=== PATIENT | male | born 1935 | race Caucasian/White ===

== ENCOUNTER 2016-09-15 08:19 | Day surgery (SDC) | payer MEDICARE, OTHER ==
[~2016-09-15 08:19] MED LIST: DIPHENHYDRAMINE HCL 50 MG/ML VIAL ONE; EPINEPHRINE INJ 1 MG/10 ML DISP.SYRIN ONE; FENTANYL CITRATE INJ/PF 100 MCG/2 ML AMPUL ONE; FLUMAZENIL INJ 0.5 MG/5 ML VIAL IV ONE; GLUCAGON,HUMAN RECOMB 1 MG INJ ONE; NALOXONE HCL INJ/PF 0.4 MG/1 ML SDV ONE; ONDANSETRON HCL INJ/PF 4 MG/2 ML SDV ONE; PROMETHAZINE HCL INJ 25 MG/1 ML VIAL ONE
[2016-09-15] MEDS: MIDAZOLAM 2 MG/2 ML INJ ONE ×2 (09:17→09:30)
[2016-09-15] MEDS ORDERED: SIMETHICONE 80 MG TAB.CHEW ONE (10:28)
--- NOTE | 2016-09-15 10:43 | Operative Report ---
Operative Report DATE OF SURGERY: 09/15/16 Operative Report: The risks, benefits and alternatives of the procedure including risks of bleeding, perforation requiring surgery are explained to the patient in detail and informed consent is obtained. Patient was taken back to the endoscopy suite and placed in a left lateral decubital position. Timeout is called. A rectal examination was done which did not reveal any masses, tears or fissures. An Olympus video scope was inserted into the patient's rectum. Keeping the lumen in sight at all times the scope was then gradually advanced all the way to cecum. The cecum was identified by the usual anatomical landmarks of the ileocecal valve as well as the appendiceal office. Photodocumentation was obtained. Prep is good. The scope was then sequentially pulled back via the various segments of the colon including the ascending colon, hepatic flexure, transverse colon, splenic flexure, descending colon and finally into the rectosigmoid colon. Retroflexion maneuvers performed. Following this the patient's stretcher was turned around and the EGD performed. The risks benefits and alternatives of the procedure explained to the patient in detail and informed consent is obtained that GIF Olympus video scope was inserted into the patient's mouth and hypopharynx the esophagus is identified intubated and insufflated the scope was then advanced through the esophagus stomach and duodenum retroflexion maneuver is done the esophagus stomach and first and second portions of the duodenum examined PREOPERATIVE DIAGNOSIS: Iron deficiency anemia rule out GI bleed. Weight loss. Personal history of polyps POSTOPERATIVE DIAGNOSIS: Mild colitis, nonspecific. Gastritis. Diverticulosis. Internal hemorrhoids OPERATION: Colonoscopy, biopsy. EGD with biopsy SURGEON: DION COATS ANESTHESIA: Moderate Sedation - 3 mg of Versed, 25 g of fentanyl. TISSUE REMOVED OR ALTERED: Gastric specimens obtained COMPLICATIONS: None. ESTIMATED BLOOD LOSS: none. INTRAOPERATIVE FINDINGS: No active GI bleeding seen. Occasional diverticulosis noted. Internal hemorrhoids. Gastritis. Previous history of peptic ulcer disease PROCEDURE: Patient tolerated the procedure well. No immediate postprocedure complications are noted. Patient is discharged in good condition. Discharge date 09/15/2016. Discharge diet: Regular. Discharge activity: Regular. Patient does have a 2-3 follow-up to discuss findings. Patient is instructed to go to emergency room all call the office should there be any further problems or questions. We'll await on biopsies
[2016-09-15 11:56] VITALS: BP 156/92
== END 2016-09-15 11:40 | disposition home or self-care (01) ==
LOC: END 08:19
PROVIDERS: ATTEND Internal Medicine Gastroenterology
PROC: 0DB68ZX Excision of Stomach, Via Natural or Artificial Opening Endoscopic, Diagnostic (ICD-10-PCS; principal; 2016-09-15 09:00)
PROC: 0DJD8ZZ Inspection of Lower Intestinal Tract, Via Natural or Artificial Opening Endoscopic (ICD-10-PCS; 2016-09-15 09:00)
DX: K52.9 Noninfective gastroenteritis and colitis, unspecified (principal); K57.30 Diverticulosis of large intestine without perforation or abscess without bleeding; K64.8 Other hemorrhoids; D50.9 Iron deficiency anemia, unspecified; Z86.010 Personal history of colon polyps; I10 Essential (primary) hypertension; E78.5 Hyperlipidemia, unspecified; Z79.82 Long term (current) use of aspirin; Z79.899 Other long term (current) drug therapy
CPT/HCPCS: 43239; 45378; 88305 ×2; J2250; J3010; A9270; J0171; J1200; J1610; J2310; J2405; J2550; J3490

== ENCOUNTER 2017-07-22 08:05 | Day surgery (SDC) | payer MEDICARE, OTHER ==
[~2017-07-22 08:05] MED LIST changes: -FLUMAZENIL INJ 0.5 MG/5 ML VIAL IV ONE; +FLUMAZENIL INJ 0.5 MG/5 ML VIAL ONE; +MIDAZOLAM 2 MG/2 ML INJ ONE; -PROMETHAZINE HCL INJ 25 MG/1 ML VIAL ONE
--- NOTE | 2017-07-22 09:00 | Operative Report ---
Operative Report DATE OF SURGERY: 07/22/17 Operative Report: The risks benefits and alternatives of the procedure explained to the patient in detail and informed consent is obtained.A GIF Olympus video scope was inserted into the patient's mouth and hypopharynx, the esophagus is identified intubated and insufflated, the scope was then advanced through the esophagus stomach and duodenum, retroflexion maneuver is done, the esophagus stomach and first and second portions of the duodenum examined PREOPERATIVE DIAGNOSIS: Follow-up on previous history of esophagitis, patient does have some dysphagia. POSTOPERATIVE DIAGNOSIS: Persistent distal esophageal inflammation, biopsy obtained. Gastritis biopsy obtained OPERATION: EGD with biopsy SURGEON: DION COATS ANESTHESIA: Moderate Sedation - 2 mg of Versed. Conscious sedation monitoring time 30 minutes. TISSUE REMOVED OR ALTERED: Distal esophageal specimen obtained. Gastric mucosal specimen obtained COMPLICATIONS: None. ESTIMATED BLOOD LOSS: None. INTRAOPERATIVE FINDINGS: As noted above. PROCEDURE: Patient tolerated procedure well. No immediate postprocedure complications are noted. Patient discharged in good condition. Discharge date 07/22/2017. Discharge diet: Regular. Discharge activity: Regular. 2-3 week follow-up to discuss findings. Patient is instructed to call the office or proceed to the emergency room should there be any further problems or questions. We will await pathology. Close follow-up needed to monitor his esophagitis.
[2017-07-22 10:19] VITALS: BP 142/71
== END 2017-07-22 10:20 | disposition home or self-care (01) ==
LOC: END 08:05
PROVIDERS: ATTEND Internal Medicine Gastroenterology
PROC: 0DB58ZX Excision of Esophagus, Via Natural or Artificial Opening Endoscopic, Diagnostic (ICD-10-PCS; 2017-07-22)
PROC: 0DB68ZX Excision of Stomach, Via Natural or Artificial Opening Endoscopic, Diagnostic (ICD-10-PCS; principal; 2017-07-22 09:00)
DX: K29.50 Unspecified chronic gastritis without bleeding (principal); K20.9 Esophagitis, unspecified; I10 Essential (primary) hypertension; E78.5 Hyperlipidemia, unspecified; D50.9 Iron deficiency anemia, unspecified; Z79.82 Long term (current) use of aspirin; Z79.899 Other long term (current) drug therapy
CPT/HCPCS: 43239; 88305 ×2; J2250; J3010; J0171; J1200; J1610; J2310; J2405; J3490

== ENCOUNTER 2017-09-28 07:06 | Day surgery (SDC) | payer MEDICARE, OTHER ==
[2017-09-28] MEDS ORDERED: DIPHENHYDRAMINE HCL 50 MG/ML VIAL ONE (07:33)
[2017-09-28] MEDS ORDERED: NALOXONE HCL INJ/PF 0.4 MG/1 ML SDV ONE (07:33)
[2017-09-28] MEDS ORDERED: ONDANSETRON HCL INJ/PF 4 MG/2 ML SDV ONE (07:33)
[2017-09-28] MEDS ORDERED: FENTANYL CITRATE INJ/PF 100 MCG/2 ML AMPUL ONE (07:34)
[2017-09-28] MEDS ORDERED: EPINEPHRINE INJ 1 MG/10 ML DISP.SYRIN ONE (07:34)
[2017-09-28] MEDS ORDERED: FLUMAZENIL INJ 0.5 MG/5 ML VIAL ONE (07:34)
[2017-09-28] MEDS ORDERED: MIDAZOLAM 2 MG/2 ML INJ ONE (07:34)
[2017-09-28] MEDS ORDERED: GLUCAGON,HUMAN RECOMB 1 MG INJ ONE (07:35)
[2017-09-28] MEDS: MIDAZOLAM 2 MG/2 ML INJ ONE ×3 (07:56→08:05)
--- NOTE | 2017-09-28 08:14 | Operative Report ---
Operative Report DATE OF SURGERY: 09/28/17 Operative Report: The risks benefits and alternatives of the procedure explained to the patient in detail and informed consent is obtained.A GIF Olympus video scope was inserted into the patient's mouth and hypopharynx, the esophagus is identified intubated and insufflated, the scope was then advanced through the esophagus stomach and duodenum, retroflexion maneuver is done, the esophagus stomach and first and second portions of the duodenum examined PREOPERATIVE DIAGNOSIS: Esophagitis versus Aguirre's POSTOPERATIVE DIAGNOSIS: Majority of the distal esophagitis has healed, 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 Hiatal hernia OPERATION: EGD with ablation SURGEON: DION COATS ANESTHESIA: Moderate Sedation - 4 mg of Versed. Conscious sedation monitoring time 30 minutes. TISSUE REMOVED OR ALTERED: None. COMPLICATIONS: None. ESTIMATED BLOOD LOSS: None. INTRAOPERATIVE FINDINGS: As noted above. PROCEDURE: Patient tolerated procedure well. No immediate postprocedure complications are noted. Patient discharged in good condition. Discharge date 09/28/2017. Discharge diet: Regular. Discharge activity: Regular. 2-3 week follow-up to discuss findings. Patient is instructed to call the office or proceed to the emergency room should there be any further problems or questions.
[2017-09-28 09:58] VITALS: BP 120/66
== END 2017-09-28 09:40 | disposition home or self-care (01) ==
LOC: END 07:06
PROVIDERS: ATTEND Internal Medicine Gastroenterology
PROC: 0D558ZZ Destruction of Esophagus, Via Natural or Artificial Opening Endoscopic (ICD-10-PCS; principal; 2017-09-28 08:00)
DX: K20.9 Esophagitis, unspecified (principal); K22.70 Barrett's esophagus without dysplasia; K44.9 Diaphragmatic hernia without obstruction or gangrene; I10 Essential (primary) hypertension
CPT/HCPCS: 43270; J2250; J0171; J1200; J1610; J2310; J2405; J3010; J3490

== ENCOUNTER 2019-04-11 00:32 | Observation (INO) | payer MEDICARE, OTHER ==
--- NOTE | 2019-04-11 00:52 | ER Document Report ---
ED General - General Stated Complaint: SHORTNESS OF BREATH Time Seen by Provider: 04/11/19 00:44 Notes: Patient is a 83-year-old male that comes to the emergency department by EMS for chief complaint of pain in his chest from "the throat all the way down to the stomach with a burning feeling". He states he started feeling discomfort at 2230 tonight, started feeling short of breath at 2300 approximately. He has had a cough for about 3 weeks now, he was started on doxycycline for this. He denies fever/chills, nausea/vomiting, he states he has no difficulty eating. Past medical history includes ID x3 with his last [place] [address] 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 No reported history of A. fib for but he states he is on Eliquis. TRAVEL OUTSIDE OF THE [place] IN LAST 30 DAYS: No - Related Data Allergies/Adverse Reactions: No Known Allergies Allergy (Verified 04/11/19 00:55) Past Medical History - General Information source: Patient - Social History Smoking Status: Never Smoker Frequency of alcohol use: None Drug Abuse: None Lives with: Family Family History: Reviewed & Not Pertinent - Past Medical History Cardiac Medical History: Reports: Hx Heart Attack - X 3 1996, Hx Hypertension Denies: Hx Coronary Artery Disease Pulmonary Medical History: Denies: Hx Asthma, Hx Bronchitis, Hx COPD, Hx Pneumonia Neurological Medical History: Denies: Hx Cerebrovascular Accident, Hx Seizures GI Medical History: Denies: Hx Hepatitis, Hx Hiatal Hernia, Hx Ulcer Musculoskeletal Medical History: Reports Hx Arthritis Infectious Medical History: Denies: Hx Hepatitis Past Surgical History: Reports: Hx Open Heart Surgery - STENT X 1. Denies: Hx Pacemaker - Immunizations Hx Diphtheria, Pertussis, Tetanus Vaccination: Yes Hx Pneumococcal Vaccination: 05/22/17 Review of Systems - Review of Systems Constitutional: No symptoms reported EENT: No symptoms reported Cardiovascular: See HPI Respiratory: See HPI Gastrointestinal: See HPI Genitourinary: No symptoms reported Male Genitourinary: No symptoms reported Musculoskeletal: No symptoms reported Skin: No symptoms reported Hematologic/Lymphatic: No symptoms reported Neurological/Psychological: No symptoms reported Physical Exam - Vital signs Vitals: Temp Pulse Resp BP Pulse Ox 98.1 F 89 18 144/88 H 97 04/11/19 00:32 04/11/19 00:32 04/11/19 00:32 04/11/19 00:32 04/11/19 00:32 - Notes Notes: GENERAL: Alert, interacts well. No acute distress. HEAD: Normocephalic, atraumatic. EYES: Pupils equal, round, and reactive to light. Extraocular movements intact. ENT: Oral mucosa moist, tongue midline. Oropharynx unremarkable. Airway patent. Nares patent, no nasal septal hematoma NECK: Full range of motion. Supple. Trachea midline. LUNGS: Patient does have episodes of congested cough. HEART: Regular rate and rhythm except for extrasystoles. No murmur. ABDOMEN: Soft, non-tender. Non-distended. Bowel sounds present in all 4 quadrants. GENITOURINARY: Deferred EXTREMITIES: Moves all 4 extremities spontaneously. There is 1+ pitting edema bilaterally. There is old deformity of the right ankle, discoloration of the skin over the feet with a bluish color but patient states this is chronic. Pulses and sensation intact. BACK: no cervical, thoracic, lumbar midline tenderness. No saddle anesthesia, normal distal neurovascular exam. NEUROLOGICAL: Alert and oriented x3. Normal speech. Cranial nerves II through XII grossly intact. PSYCH: Normal affect, normal mood. SKIN: Warm, dry, normal turgor. No rashes or lesions noted. Course - Re-evaluation Re-evalutation: Records do show patient has had a history of A. fib. He is well-appearing on my exam, he does have frequent PVCs, initial EKG is difficult to interpret and will be repeated. There was a lot of artifact. Repeat EKG is better but still appears to show rate controlled atrial fibrillation with scattered PVCs. Does not appear to be flutter. CBC shows mild normocytic anemia, otherwise unremarkable. Chemistry nonspecific. Troponin is 0.128, BNP is 1900. Patient does have bilateral lower extremity edema which is mild, lungs sound clear, chest x-ray appears normal. Unfortunately have no comparison troponins and BNP's. 04/11/19 01:45 Patient is not complaining of chest pain at this time, he states she just has a burning sensation in his throat when he coughs. He is asking for something for this. Patient was reevaluated after receiving a lidocaine nebulizer, he states his symptoms are gone at this time, he feels much better. Second troponin is slightly downtrending at 0.126. Patient discussed with Dr. Morgan. 04/11/19 03:[address] Luna, hospitalist, he recommends that I speak to patient's tool engineer Dr. Pacheco first and then call him back if needed. I spoke with Dr. Pacheco, discussed patient's HPI and work-up. He recommends that patient be admitted to telemetry observation for chest pain rule out based on his symptoms, age, and laboratory work-up so far. I discussed this with patient and step daughter at bedside, they state understanding and agreement with this plan. - Vital Signs Vital signs: Temp Pulse Resp BP Pulse Ox 98.1 F 89 21 H 153/88 H 97 04/11/19 00:32 04/11/19 00:32 04/11/19 05:03 04/11/19 05:03 04/11/19 05:03 - Laboratory Result Diagrams: 04/11/19 00:53 04/11/19 00:53 Laboratory results interpreted by me: 04/11/19 04/11/19 04/11/19 00:53 00:53 00:53 Hgb 11.7 L Hct 36.1 L MCH 26.5 L RDW 16.4 H Chloride 109 H BUN 26 H NT-Pro-B Natriuret Pep 1900 H Lipase 333.6 H - EKG Interpretation by Me Additional EKG results interpreted by me: EKG shows atrial flutter at a rate of 100, also appears to have PVCs present, no noted T wave inversions or ST segment changes in consecutive leads. No recent comparison EKG present. Discharge - Discharge Clinical Impression: Elevated brain natriuretic peptide (BNP) level, Elevated troponin, Cough Chest pain Qualifiers: Chest pain type: unspecified Qualified Code(s): R07.9 - Chest pain, unspecified Condition: Stable Disposition: ADMITTED OBSERVATION Admitting Provider: Cheryl (Hospitalist) Unit Admitted: Telemetry
[2019-04-11 01:02] LABS: ABSOLUTE BASOPHILS # (AUTO) 0.1 10^3/uL (0.0-0.2); ABSOLUTE EOSINOPHILS # (AUTO) 0.2 10^3/uL (0.0-0.6); ABSOLUTE LYMPHOCYTES (AUTO) 1.4 10^3/uL (0.5-4.7); ABSOLUTE MONOCYTES (AUTO) 0.7 10^3/uL (0.1-1.4); ABSOLUTE NEUT (AUTO) 4.8 10^3/uL (1.7-8.2); BASOPHILS % (AUTO) 0.8 % (0-2); EOSINOPHILS % (AUTO) 3.4 % (0-6); HEMATOCRIT 36.1 % (37.9-51.0); HEMOGLOBIN 11.7 g/dL (13.5-17.0); LYMPHOCYTES % (AUTO) 19.9 % (13-45); MEAN CORPUSCULAR HEMOGLOBIN 26.5 pg (27.0-33.4); MEAN CORPUSCULAR HGB CONC 32.4 g/dL (32.0-36.0); MEAN CORPUSCULAR VOLUME 82 fl (80-97); PLATELET COUNT 239 10^3/uL (150-450); RED BLOOD COUNT 4.42 10^6/uL (4.35-5.55); RED CELL DISTRIBUTION WIDTH 16.4 % (11.5-14.0); SEGMENTED NEUTROPHILS % (AUTO) 65.9 % (42-78); TOTAL CELLS COUNTED % (AUTO) 100 %; WHITE BLOOD COUNT 7.2 10^3/uL (4.0-10.5)
[2019-04-11 01:09] LABS: INTERNATIONAL RATION (INR) 1.09; PROTHROMBIN TIME 14.1 SEC (11.4-15.4)
[2019-04-11 01:24] LABS: ALBUMIN 3.6 g/dL (3.5-5.0); ALKALINE PHOSPHATASE 89 U/L (38-126); ANION GAP 6 (5-19); ASPARTATE AMINO TRANSFERASE 36 U/L (17-59); BILIRUBIN,DIRECT 0.3 mg/dL (0.0-0.4); BILIRUBIN,TOTAL 0.4 mg/dL (0.2-1.3); BLOOD UREA NITROGEN 26 mg/dL (7-20); CALCIUM 9.7 mg/dL (8.4-10.2); CARBON DIOXIDE 28 mmol/L (22-30); CHLORIDE 109 mmol/L (98-107); GLUCOSE 84 mg/dL (75-110); POTASSIUM 4.3 mmol/L (3.6-5.0); TOTAL PROTEIN 6.4 g/dL (6.3-8.2)
--- NOTE | 2019-04-11 01:26 | RADIOLOGY REPORT (SQ) ---
EXAM DESCRIPTION: [facility]: XR CHEST 1 VIEW CLINICAL HISTORY: 83 years Male, cp COMPARISON: None. FINDINGS: Lungs are clear, with no focal infiltrate, pneumothorax, or pleural effusion. Mediastinum is within normal limits for this positioning. Bony structures are unremarkable. IMPRESSION: 1. No acute pulmonary findings.
[2019-04-11 01:37] LABS: TROPONIN I 0.128 ng/mL
[2019-04-11] MEDS ORDERED: LIDOCAINE 1% INJ-PF (10 MG/ML) 30 ML SDV NEB ONE (01:38)
[2019-04-11] MEDS ORDERED: FAMOTIDINE 20 MG TABLET PO ONE (01:44)
[2019-04-11] MEDS ORDERED: ASPIRIN 81 MG TABLET, CHEWABLE PO ONE (01:44)
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
[2019-04-11] MEDS ORDERED: ONDANSETRON HCL INJ/PF 4 MG/2 ML SDV IV PRN (06:52)
[2019-04-11] MEDS ORDERED: MAGNESIUM HYDROXIDE SUSP 30 ML UDCUP PO PRN (06:52)
[2019-04-11] MEDS ORDERED: MAG HYDROX/AL HYDROX/SIMETH SUSP 30 ML UDCUP PO PRN (06:52)
--- NOTE | 2019-04-11 09:25 | Progress Note ---
Provider Note Provider Note: 83 year old male who presented to the emergency room with an acute history of chest pain. Patient indicates that at approximately 10:30 PM on the night prior to admission he developed a burning sensation in his chest from his stomach all the way up to his throat which gradually increased over the next half an hour and was accompanied by moderate dyspnea. He further admits to a 3-week history of a nonproductive cough which she feels may be associated with his current symptoms. He denies other associated or accompanying signs and symptoms. He denies prior similar episodes. He has not identified any aggravating or ameliorating factors for his chest pain. In the emergency room patient was treated with a lidocaine nebulizer treatment which provided him with immediate relief of his discomfort. He was noted to have an elevated troponin. Patient was subsequently admitted to the hospital for further evaluation and treatment as a observation status patient per Dr. Pacheco's request. 04/11/2019-patient was seen briefly in the emergency room around 9 AM this morning. Denies any chest pain complaints of heartburn symptoms. Expressing desire to eat. Repeat cardiac enzymes are requested. Family is concerned about his lower leg swelling. His vital signs are stable blood pressure is 145/83 pulse rate is 74 respiratory feels 15 pulse ox is 96%. Lipase is 333 with elevated BNP of 1190. Latest troponin is 0.126. Cardiology on board. On examination alert awake oriented not in distress chest bilateral entry was decreased no wheezing no crepitations S1-S2 present abdomen soft flat bowel sounds are present. Extremities 1+ pedal edema present. to continue the present management at this time.
[2019-04-11] MEDS: FAMOTIDINE 20 MG TABLET PO SCH ×2 (09:27→22:28)
[2019-04-11] MEDS: DOCUSATE SODIUM 100 MG/10 ML UDC PO SCH ×2 (09:27→17:37)
[2019-04-11 10:23] LABS: CREATINE KINASE MB 1.95 ng/mL (<4.55); TROPONIN I 0.101 ng/mL
[2019-04-11] MEDS ORDERED: FUROSEMIDE INJ/PF 20 MG/2 ML SDV IV ONE (13:00)
[2019-04-11] MEDS ORDERED: NITROGLYCERIN 5 MG (0.2 MG/HR) PATCH.TD24 TD ONE (13:00)
[2019-04-11] MEDS: METOPROLOL SUCCINATE 25 MG TAB.SR.24H PO SCH ×2 (13:17→22:28)
[2019-04-11 15:43] LABS: CREATINE KINASE MB 1.67 ng/mL (<4.55); TROPONIN I 0.084 ng/mL
--- NOTE | 2019-04-11 17:33 | EKG REPORT ---
SEVERITY:- ABNORMAL ECG - SINUS RHYTHM MULTIPLE VENTRICULAR PREMATURE COMPLEXES BORDERLINE PROLONGED QT INTERVAL : Confirmed by: Alyssa Pacheco MD 11-Apr-2019 17:32:08
--- NOTE | 2019-04-11 17:33 | EKG REPORT ---
SEVERITY:- ABNORMAL ECG - ATRIAL FLUTTER,/ FIBRILLATION : Confirmed by: Alyssa Pacheco MD 11-Apr-2019 17:33:04
--- NOTE | 2019-04-11 17:33 | EKG REPORT ---
SEVERITY:- ABNORMAL ECG - SINUS OR ECTOPIC ATRIAL RHYTHM MULTIPLE VENTRICULAR PREMATURE COMPLEXES : Confirmed by: Alyssa Pacheco MD 11-Apr-2019 17:32:03
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
[2019-04-11] MEDS: TRAMADOL HCL 50 MG TABLET PO PRN (22:28)
[2019-04-11 22:47] LABS: CREATINE KINASE MB 1.27 ng/mL (<4.55); TROPONIN I 0.08 ng/mL
[2019-04-12 06:07] LABS: ABSOLUTE EOSINOPHILS # (AUTO) 0.4 10^3/uL (0.0-0.6); ABSOLUTE LYMPHOCYTES (AUTO) 1.2 10^3/uL (0.5-4.7); ABSOLUTE MONOCYTES (AUTO) 0.9 10^3/uL (0.1-1.4); ABSOLUTE NEUT (AUTO) 4.9 10^3/uL (1.7-8.2); BASOPHILS % (AUTO) 0.6 % (0-2); EOSINOPHILS % (AUTO) 5.2 % (0-6); HEMATOCRIT 35.3 % (37.9-51.0); HEMOGLOBIN 11.5 g/dL (13.5-17.0); LYMPHOCYTES % (AUTO) 16.8 % (13-45); MEAN CORPUSCULAR HEMOGLOBIN 26.7 pg (27.0-33.4); MEAN CORPUSCULAR HGB CONC 32.7 g/dL (32.0-36.0); MEAN CORPUSCULAR VOLUME 82 fl (80-97); MONOCYTES % (AUTO) 11.6 % (3-13); PLATELET COUNT 200 10^3/uL (150-450); RED BLOOD COUNT 4.32 10^6/uL (4.35-5.55); RED CELL DISTRIBUTION WIDTH 16.6 % (11.5-14.0); SEGMENTED NEUTROPHILS % (AUTO) 65.8 % (42-78); TOTAL CELLS COUNTED % (AUTO) 100 %; WHITE BLOOD COUNT 7.4 10^3/uL (4.0-10.5)
[2019-04-12 06:19] LABS: ALBUMIN 3.1 g/dL (3.5-5.0); ALKALINE PHOSPHATASE 79 U/L (38-126); ANION GAP 8 (5-19); ASPARTATE AMINO TRANSFERASE 30 U/L (17-59); BILIRUBIN,DIRECT 0.1 mg/dL (0.0-0.4); BILIRUBIN,TOTAL 0.3 mg/dL (0.2-1.3); BLOOD UREA NITROGEN 25 mg/dL (7-20); CALCIUM 9.3 mg/dL (8.4-10.2); CARBON DIOXIDE 26 mmol/L (22-30); CHLORIDE 108 mmol/L (98-107); GLUCOSE 76 mg/dL (75-110); POTASSIUM 3.9 mmol/L (3.6-5.0); TOTAL PROTEIN 5.6 g/dL (6.3-8.2)
[2019-04-12] MEDS: TRAMADOL HCL 50 MG TABLET PO PRN ×3 (08:46→23:00)
--- NOTE | 2019-04-12 09:01 | EKG REPORT ---
SEVERITY:- ABNORMAL ECG - ATRIAL FIBRILLATION, V-RATE 70-90 MULTIPLE VENTRICULAR PREMATURE COMPLEXES BORDERLINE PROLONGED QT INTERVAL : Confirmed by: Alyssa Pacheco MD 12-Apr-2019 09:01:05
--- NOTE | 2019-04-12 09:03 | EKG REPORT ---
SEVERITY:- OTHERWISE NORMAL ECG - VENTRICULAR PREMATURE COMPLEX ATRIAL FIBRILLATION : Confirmed by: Alyssa Pacheco MD 12-Apr-2019 09:01:51
--- NOTE | 2019-04-12 09:03 | EKG REPORT ---
SEVERITY:- OTHERWISE NORMAL ECG - SINUS OR ECTOPIC ATRIAL RHYTHM VENTRICULAR PREMATURE COMPLEX : Confirmed by: Alyssa Pacheco MD 12-Apr-2019 09:01:55
[2019-04-12] MEDS: FAMOTIDINE 20 MG TABLET PO SCH ×2 (09:30→22:00)
[2019-04-12] MEDS: METOPROLOL SUCCINATE 25 MG TAB.SR.24H PO SCH ×2 (09:30→22:00)
[2019-04-12] MEDS: DOCUSATE SODIUM 100 MG/10 ML UDC PO SCH ×2 (09:30→20:57)
[2019-04-12] MEDS: APIXABAN 2.5 MG TABLET PO SCH ×2 (11:44→22:00)
--- NOTE | 2019-04-12 14:08 | PDOC PROGRESS REPORT ---
Subjective Progress Note for:: 04/12/19 Subjective:: Patient is currently eating lunch. He appears comfortable. He has no complaints. Reason For Visit: CHEST PAIN Physical Exam Vital Signs: Temp Pulse Resp BP Pulse Ox 98.5 F 86 19 159/90 H 97 04/12/19 08:07 04/12/19 08:07 04/12/19 08:07 04/12/19 08:07 04/12/19 08:07 Intake & Output 04/11/19 04/12/19 04/13/19 06:59 06:59 06:59 Intake Total 1380 592 Output Total 2900 1000 Balance -1520 -408 Weight 88.4 kg 92.5 kg General appearance: PRESENT: no acute distress, cooperative, well-developed - Frail appearing 83-year-old male sitting in the chair Head exam: PRESENT: atraumatic, normocephalic Eye exam: PRESENT: conjunctiva pink, EOMI. ABSENT: scleral icterus Ear exam: PRESENT: normal external ear exam. ABSENT: bleeding, drainage Mouth exam: PRESENT: moist, tongue midline Respiratory exam: PRESENT: clear to auscultation jacquelin, symmetrical, unlabored. ABSENT: rales, rhonchi, tachypnea, wheezes Cardiovascular exam: PRESENT: irregular rhythm. ABSENT: diastolic murmur, systolic murmur GI/Abdominal exam: PRESENT: normal bowel sounds, soft. ABSENT: distended, tenderness Rectal exam: PRESENT: deferred Gentrourinary exam: ABSENT: indwelling catheter Extremities exam: ABSENT: joint swelling, pedal edema, tenderness Musculoskeletal exam: PRESENT: normal inspection. ABSENT: deformity Neurological exam: PRESENT: alert, awake, oriented to person, oriented to place, oriented to time, oriented to situation, CN II-XII grossly intact Psychiatric exam: PRESENT: appropriate affect, normal mood. ABSENT: agitated, anxious Focused psych exam: ABSENT: delusional, restlessness Results Laboratory Results: 04/12/19 05:36 04/12/19 05:36 04/12/19 04/12/19 05:36 05:36 WBC 7.4 RBC 4.32 L Hgb 11.5 L Hct 35.3 L MCV 82 MCH 26.7 L MCHC 32.7 RDW 16.6 H Plt Count 200 Seg Neutrophils % 65.8 Sodium 142.1 Potassium 3.9 Chloride 108 H Carbon Dioxide 26 Anion Gap 8 BUN 25 H Creatinine 1.02 Est GFR ( Amer) > 60 Glucose 76 Calcium 9.3 Magnesium 2.2 Total Bilirubin 0.3 AST 30 Alkaline Phosphatase 79 Total Protein 5.6 L Albumin 3.1 L 04/11/19 04/11/19 04/11/19 00:53 02:58 02:58 Creatine Kinase 65 CK-MB (CK-2) Troponin I 0.128 0.126 NT-Pro-B Natriuret Pep 1900 H 04/11/19 04/11/19 04/11/19 02:58 09:18 09:18 Creatine Kinase 51 L CK-MB (CK-2) 2.49 1.95 Troponin I Cancelled 0.101 NT-Pro-B Natriuret Pep 04/11/19 04/11/19 04/11/19 15:00 15:00 21:48 Creatine Kinase 53 L 49 L CK-MB (CK-2) 1.67 Troponin I 0.084 NT-Pro-B Natriuret Pep 04/11/19 21:48 Creatine Kinase CK-MB (CK-2) 1.27 Troponin I 0.080 NT-Pro-B Natriuret Pep Impressions: Chest X-Ray 04/11/19 00:45 IMPRESSION: 1. No acute pulmonary findings. Assessment and Plan - Diagnosis (1) Chest pain Qualifiers: Chest pain type: other chest pain Qualified Code(s): R07.89 - Other chest pain; R07.8 - Other chest pain Is this a current diagnosis for this admission?: Yes Plan: 04/12/2019-the chest pain is most likely noncardiac. It was relieved with a lidocaine nebulizer treatment. It is possible he GI related. The patient does take Celebrex as well. This could contribute to GI distress as well. Chest pain is currently resolved. (2) Elevated brain natriuretic peptide (BNP) level Is this a current diagnosis for this admission?: Yes Plan: 04/12/2019-most likely due to his history of heart disease. He is currently not in active heart failure. (3) Elevated troponin Is this a current diagnosis for this admission?: Yes Plan: 04/12/2019-troponins are marginally elevated. This is most likely due to the paroxysmal atrial fibrillation. Maximize therapy for coronary disease. The patient will have a stress test as an outpatient after discharge. (4) Cough Is this a current diagnosis for this admission?: Yes Plan: 04/12/2019-exact etiology of the cough is difficult to ascertain. He was coughing during today's encounter while eating his meals. He states that the cough is not directly associated with meals as he coughs at other times as well. Symptomatic treatment for the cough at this time. (5) Chronic anticoagulation Is this a current diagnosis for this admission?: Yes Plan: 04/12/2019-the patient was observed in atrial fibrillation on the monitor and by exam. He was placed on chronic anticoagulation by cardiology. At this point the benefit outweighs the risk as noted in the cardiology note. If the patient tolerates the medication he will be discharged tomorrow with an outpatient Cardiolite stress test. The patient is on aspirin and Celebrex and he certainly present risk. He will need monitoring by his primary care provider. (6) Paroxysmal atrial fibrillation Is this a current diagnosis for this admission?: Yes Plan: 04/12/2019-good rate control on metoprolol. - Time Time Spent with patient: 15-24 minutes Medications reviewed and adjusted accordingly: Yes Anticipated discharge: Home Within: within 24 hours - Plan Summary Plan Summary: Monitor overnight with the addition of anticoagulation. The plan is to discharge home in the morning.
[2019-04-13] MEDS: TRAMADOL HCL 50 MG TABLET PO PRN (08:20)
[2019-04-13] MEDS: DOCUSATE SODIUM 100 MG/10 ML UDC PO SCH (11:20)
[2019-04-13] MEDS: METOPROLOL SUCCINATE 25 MG TAB.SR.24H PO SCH (11:20)
[2019-04-13] MEDS: APIXABAN 2.5 MG TABLET PO SCH (11:21)
[2019-04-13] MEDS: FAMOTIDINE 20 MG TABLET PO SCH (11:21)
--- NOTE | 2019-04-13 11:53 | PDOC DISCHARGE SUMMARY ---
General - Admit/Disc Date/PCP Admission Date/Primary Care Provider: 04/11/19 03:59 Discharge Date: 04/13/19 - Discharge Diagnosis (1) Chest pain Is this a current diagnosis for this admission?: Yes Summary: This chest pain is most likely non-cardiac as it was relieved with nebulized lidocaine. The most likely etiology, based on all considerations, would be gastroesophageal. (2) Elevated brain natriuretic peptide (BNP) level Is this a current diagnosis for this admission?: Yes Summary: Possibly due to cardiac strain and the patient's advanced age. There is no echocardiogram to document systolic or diastolic dysfunction. (3) Elevated troponin Is this a current diagnosis for this admission?: Yes Summary: Most likely due to strain with underlying fibrillation. He will be seeing Dr. Pacheco and having an outpatient Cardiolite stress test as well. (4) Cough Is this a current diagnosis for this admission?: Yes Summary: I discussed this with his sister. During yesterday's visit it was noted that he was eating lunch and coughing. The patient and his sister report that he has had a cold and this is the etiology for the cough as they feel it is not specifically related to swallowing. (5) Chronic anticoagulation Is this a current diagnosis for this admission?: Yes Summary: The patient has a history of multiple emboli and with his atrial fibrillation the risk versus benefit for anticoagulation supports continued anticoagulation. (6) Paroxysmal atrial fibrillation Is this a current diagnosis for this admission?: Yes Summary: Good rate control on current regimen. He will continue anticoagulation as well. (7) Gait disorder Is this a current diagnosis for this admission?: Yes Summary: The patient is quite weak and deconditioned. Therapy suggests discharge with ongoing outpatient physical therapy and a walker for safety when ambulating. These orders were placed prior to discharge. - Additional Information Resuscitation Status: Do Not Resuscitate Discharge Diet: Cardiac Discharge Activity: Balance Activity w/Rest Prescriptions: Apixaban [Eliquis 2.5 mg Tablet] 2.5 mg PO Q12 #60 tablet Metoprolol Succinate [Toprol Xl 25 mg Tab.sr] 25 mg PO Q12 #60 tab.sr.24h Home Medications: Celecoxib [Celebrex 200 mg Capsule] 200 mg PO BID 04/11/19 Dorzolamide HCl/Pf [Dorzolamide 2% Eye Drop] 1 drop OU BID 04/11/19 Fenofibrate Nanocrystallized [Tricor 145 mg Tablet] 145 mg PO DAILY 04/11/19 Finasteride [Proscar 5 mg Tablet] 5 mg PO DAILY 04/11/19 Fosinopril Sodium [Monopril] 10 mg PO BID 04/11/19 Rosuvastatin Calcium [Crestor 20 mg Tablet] 20 mg PO QHS 04/11/19 Tramadol HCl [Ultram 50 mg Tablet] 50 mg PO Q6HP PRN 04/11/19 Apixaban [Eliquis 2.5 mg Tablet] 2.5 mg PO Q12 #60 tablet 04/13/19 Docusate Sodium [Colace Udc 100 mg/10 ml Oral Soln] 100 mg PO BID udc 04/13/19 Metoprolol Succinate [Toprol Xl 25 mg Tab.sr] 25 mg PO Q12 #60 tab.sr.24h 04/13/19 History of Present Illness Patient complains of: Chest pain History of Present Illness: JESSICA MONET is a 83 year old male with a complex medical history. It includes multiple pulmonary emboli and atrial fibrillation. Today he describes a burning sensation that extends from his stomach all the way up his throat. It did show a chronic progression that was associated with dyspnea. He has a nonproductive cough for several weeks. On examination it was noted that he had slightly elevated troponins and was in atrial fibrillation. He did have a nebulizer treatment with lidocaine and then in fact immediately relieved his symptoms. He was referred to the hospital service for admission. Hospital Course Hospital Course: As noted above the patient had a fairly unremarkable hospital course. His cough persisted. He will have a stress test as an outpatient. Physical Exam Vital Signs: Temp Pulse Resp BP Pulse Ox 98.4 F 64 16 125/72 97 04/12/19 23:21 04/13/19 07:00 04/12/19 23:21 04/12/19 23:21 04/12/19 23:21 Intake & Output 04/12/19 04/13/19 04/14/19 06:59 06:59 06:59 Intake Total 1380 1212 Output Total 2900 6915 Balance -1520 -1613 Weight 92.5 kg General appearance: PRESENT: no acute distress, cooperative, well-developed Head exam: PRESENT: atraumatic, normocephalic Eye exam: PRESENT: conjunctiva pink. ABSENT: scleral icterus Ear exam: PRESENT: normal external ear exam. ABSENT: bleeding, drainage Respiratory exam: PRESENT: clear to auscultation jacquelin, tachypnea, wheezes. ABSENT: accessory muscle use, rales, rhonchi, symmetrical, unlabored Cardiovascular exam: PRESENT: irregular rhythm GI/Abdominal exam: PRESENT: normal bowel sounds, soft. ABSENT: tenderness Rectal exam: PRESENT: deferred Gentrourinary exam: ABSENT: indwelling catheter Extremities exam: ABSENT: joint swelling, pedal edema, tenderness Musculoskeletal exam: PRESENT: ambulatory - He does have an unsteady gait and requires a walker Neurological exam: PRESENT: alert, awake, oriented to person, oriented to place, oriented to time, oriented to situation Psychiatric exam: ABSENT: agitated, anxious Focused psych exam: ABSENT: delusional, restlessness Results Laboratory Results: 04/12/19 05:36 04/12/19 05:36 04/11/19 04/11/19 04/11/19 00:53 02:58 02:58 Creatine Kinase 65 CK-MB (CK-2) Troponin I 0.128 0.126 NT-Pro-B Natriuret Pep 1900 H 04/11/19 04/11/19 04/11/19 02:58 09:18 09:18 Creatine Kinase 51 L CK-MB (CK-2) 2.49 1.95 Troponin I Cancelled 0.101 NT-Pro-B Natriuret Pep 04/11/19 04/11/19 04/11/19 15:00 15:00 21:48 Creatine Kinase 53 L 49 L CK-MB (CK-2) 1.67 Troponin I 0.084 NT-Pro-B Natriuret Pep 04/11/19 21:48 Creatine Kinase CK-MB (CK-2) 1.27 Troponin I 0.080 NT-Pro-B Natriuret Pep Impressions: Chest X-Ray 04/11/19 00:45 IMPRESSION: 1. No acute pulmonary findings. Qualifiers - * PATIENT BEING DISCHARGED WITH ANY OF THE FOLLOWING DIAGNOSIS: No Acute Heart Failure - Is this a Heart Failure Patient?: No Plan Time Spent: Greater than 30 Minutes
[2019-04-13 12:10] VITALS: BP 134/90
== END 2019-04-13 12:35 | disposition home or self-care (01) ==
LOC: ER 00:32 → EH 03:59 → 5 12:15
PROVIDERS: ADMIT Emergency Medicine; ATTEND Emergency Medicine
DX: R07.9 Chest pain, unspecified (principal); R79.89 Other specified abnormal findings of blood chemistry; R05 Cough; I48.0 Paroxysmal atrial fibrillation; R53.1 Weakness; R06.00 Dyspnea, unspecified; R26.81 Unsteadiness on feet; I25.2 Old myocardial infarction; R44.8 Other symptoms and signs involving general sensations and perceptions; I25.10 Atherosclerotic heart disease of native coronary artery without angina pectoris; R60.0 Localized edema; K21.9 Gastro-esophageal reflux disease without esophagitis; I10 Essential (primary) hypertension; M13.89 Other specified arthritis, multiple sites; D64.9 Anemia, unspecified; I49.3 Ventricular premature depolarization; E78.5 Hyperlipidemia, unspecified; Z95.5 Presence of coronary angioplasty implant and graft; Z66 Do not resuscitate; Z79.899 Other long term (current) drug therapy; Z86.711 Personal history of pulmonary embolism; Z79.01 Long term (current) use of anticoagulants; Z87.828 Personal history of other (healed) physical injury and trauma; Z87.81 Personal history of (healed) traumatic fracture; Z83.2 Family history of diseases of the blood and blood-forming organs and certain disorders involving the immune mechanism; Z79.1 Long term (current) use of non-steroidal anti-inflammatories (NSAID); Z90.49 Acquired absence of other specified parts of digestive tract; Z72.0 Tobacco use
CPT/HCPCS: 93005 ×3; 99285; 96374; 36415 ×2; 82553; 82550; 83690; 83735; 85025 ×2; 85610; 80053 ×2; 84484; 84481; 83880; 71045; 93010 ×2; A9270 ×15; J1940; J3490 ×4; G0378